=== PATIENT | male | born 1965 | race Caucasian/White ===

== ENCOUNTER 2023-03-06 03:03 | Emergency (ER) | payer MEDICARE, OTHER ==
[~2023-03-06] VITALS: Ht 177.8 cm; Wt 100.0 kg
[2023-03-06 04:01] LABS: Basophils # (auto) 0 10 ^3/uL (0-0.2); Basophils % (auto) 0.3 % (0.0-2.0); Eosinophils # (auto) 0 10 ^3/uL (0-0.8); Eosinophils % (auto) 0.2 % (0.0-7.0); Hematocrit 44.1 % (41.0-53.0); Hemoglobin 14.7 g/dL (13.5-17.5); Lymphocytes # (auto) 1.9 10 ^3/uL (0.4-5.4); Lymphocytes % (auto) 19.1 % (10.0-50.0); Mean Corpuscular Hemoglobin 32.9 pg (28.0-32.0); Mean Corpuscular Hgb Conc. 33.4 g/dL (32.0-36.0); Mean Corpuscular Volume 98.7 fL (80.0-100.0); Monocytes # (auto) 0.7 10 ^3/uL (0-1.3); Monocytes % (auto) 7.1 % (0.0-12.0); Neutrophils # (auto) 7.4 10 ^3/uL (1.6-8.6); Neutrophils % (auto) 73.3 % (37.0-80.0); Nucleated Red Blood Cells % 0.1 %; Red Blood Cells 4.47 10^6/uL (4.5-5.90); White Blood Cell 10.1 10^3/uL (4.4-10.8)
[2023-03-06 04:18] LABS: Alanine Aminotransferase 45 U/L (7-40); Albumin 4.7 g/dL (3.2-4.8); Alkaline Phosphatase 140 U/L (46-116); Anion Gap 15 (5-15); Aspartate Aminotransferase 94 U/L (13-40); BUN/Creatinine Ratio 15.7 (10.0-20.0); Bilirubin, Total 2.3 mg/dL (0.2-1.0); Blood Urea Nitrogen 18 mg/dL (9-23); Calcium 9.2 mg/dL (8.5-10.1); Carbon Dioxide 17 mmol/L (20-30); Chloride 106 mmol/L (98-107); Glucose 51 mg/dL (74-106); Sodium 138 mmol/L (136-145); Total Protein 7.5 g/dL (5.7-8.2)
[2023-03-06 04:24] VITALS: PULSE 91; RESP 13; O2SAT 99
[2023-03-06 04:26] VITALS: BP 143/89; PULSE 91; RESP 13; TEMP 98.4; O2SAT 99
[2023-03-06 05:57] LABS: Lipase 29 U/L (12-53)
== END 2023-03-06 05:02 | disposition home or self-care (01) ==
LOC: ER 03:03 → EDBD 03:03 → ER 04:35
DX: S39.012A Strain of muscle, fascia and tendon of lower back, initial encounter (principal); F17.210 Nicotine dependence, cigarettes, uncomplicated; F12.10 Cannabis abuse, uncomplicated; F15.10 Other stimulant abuse, uncomplicated; X58.XXXA Exposure to other specified factors, initial encounter; Y93.89 Activity, other specified; Y92.89 Other specified places as the place of occurrence of the external cause; Y99.8 Other external cause status
CPT/HCPCS: 36415; 80053; 83690; 85025; 93005